=== PATIENT | male | born 1930 | race Caucasian/White ===

== ENCOUNTER → 2017-03-15 | Day surgery (SDC) | payer MEDICARE ==
[~2017-03-15] MED LIST: ADVAIR 250-501 EACH IH; AMIODARONE PO; AMLODIPINE BESY10 MG PO; AMLODIPINE-BEN1 EACH PO; ASPIRIN EC81 M1 PO; ASPIRIN81 M1 PO; ASPIRIN81 M2 PO; ASPIRIN81 MG PO; DICLOFENAC PO; DULERA 200 MCG/13 GM INH; FINASTERIDE5 M1 PO; FLOMAX0.4 M1 PO; FUROSEMIDE40 MG PO; HYDRALAZINE HCL25 MG PO; HYDROCODON-ACE1 EAC1 PO; HYDROCODON-ACE1 EAC9 PO; IMDUR-ER60 M3 PO; LEXAPRO PO; LIPITOR PO; LIPITOR20 MG PO; LOTREL 10-20 MG1 CAP PO; LOTREL 10/20 MG1 CAP PO; MOBIC15 MG PO; NITROGLYCERIN0.4 MG SL; NITROQUICK0.4 MG SL; NORCO 7.5-3251 EACH PO; OXYGEN; PAROXETINE HCL40 M1 PO; PLAVIX PO; POTASSIUM CHLO10 ME1 PO; PRILOSEC PO; PROAMATINE10 MG PO; PROSCAR5 MG PO; TRAZODONE PO; VALIUM2 MG PO; VALTREX PO; VITAMIN D1000 UNIT PO; ZOCOR20 MG PO
--- NOTE | ~2017-03-15 | OR ---
Unit #: [id number] #: [id number] Patient: WINTER HARRIS [id number] [address] [place], [place] [address] [id number] O MR#: [id number] NAME: WINTER HARRIS ROOM: Date of Procedure: 03/15/2017 Admission Date: 03/15/2017 Surgeon: Zaire Harris M.D. : 1930 Attending Physician: Zaire Harris M.D. Primary Care Physician: Willie Neal M.D. OPERATIVE REPORT PREOPERATIVE DIAGNOSES Back pain, radiculopathy, post-laminectomy, spinal stenosis, degenerative disk disease, lumbar disk herniation. POSTOPERATIVE DIAGNOSES Back pain, radiculopathy, post-laminectomy, spinal stenosis, degenerative disk disease, lumbar disk herniation. PROCEDURE PERFORMED Lumbar epidural steroid injection via caudal approach with fluoroscopic guidance for needle localization. INDICATIONS FOR PROCEDURE The patient is an 86-year-old male with back and intermittent lower extremity pains especially right hip and lower extremity. He has multilevel multifactorial nonsurgical pathology. Medications poorly tolerated. Most of his symptoms consistent with spinal stenosis. Epidural injection trial at [facility] that did not help at all, it is ended up creating increased pain in his right leg following a significant paresthesia during the procedure itself. However based on the patient's history, pathology, and symptomatology, I think epidural steroids would likely be helpful. We are going to approach this via caudal entry to avoid problems he had with previous injection. DESCRIPTION OF PROCEDURE The patient was placed in a prone position. Standard monitors were applied. Sterile prep and drape of the sacral area was performed. The skin then at the sacral hiatus was localized with 1% lidocaine. An 18-gauge Expedit.ustead needle was then advanced via the sacral hiatus into the caudal epidural space. After position was confirmed with radiographic contrast and fluoroscopy, a dose of 80 mg of Depo-Medrol and 6 mL of 0.125% bupivacaine were deposited. The patient tolerated the procedure otherwise well and was discharged to the recovery room in stable condition. Dictated by... Zaire Harris M.D. LHP/yumikol TD: 03/15/2017 15:04 JOB #: [id number] Unit #: [id number] #: [id number] Patient: JESSICA HARRISSHA Bills OPERATIVE REPORT Page 1 of 1 X Zaire Harris MD X PROCEDURE OPERATIVE NOTE
== END | disposition home or self-care (01) ==
LOC: CCSC 09:27
DX: M51.16 Intervertebral disc disorders with radiculopathy, lumbar region (principal); M48.06 Spinal stenosis, lumbar region; Z98.890 Other specified postprocedural states; I25.10 Atherosclerotic heart disease of native coronary artery without angina pectoris; K21.9 Gastro-esophageal reflux disease without esophagitis; M19.90 Unspecified osteoarthritis, unspecified site; I10 Essential (primary) hypertension; F41.9 Anxiety disorder, unspecified; J43.9 Emphysema, unspecified; Z85.51 Personal history of malignant neoplasm of bladder; Z86.718 Personal history of other venous thrombosis and embolism; Z86.711 Personal history of pulmonary embolism; Z79.82 Long term (current) use of aspirin; Z79.1 Long term (current) use of non-steroidal anti-inflammatories (NSAID); Z79.891 Long term (current) use of opiate analgesic; Z95.5 Presence of coronary angioplasty implant and graft; Z90.49 Acquired absence of other specified parts of digestive tract; Z96.652 Presence of left artificial knee joint
CPT/HCPCS: J1040; J2250

== ENCOUNTER → 2017-03-22 | Day surgery (SDC) | payer MEDICARE ==
--- NOTE | ~2017-03-22 | OR ---
Unit #: [id number] #: [id number] Patient: WINTER HARRIS [id number] [address] [place], [place] [address] [id number] O MR#: [id number] NAME: WINTER HARRIS ROOM: Date of Procedure: 03/22/2017 Admission Date: 03/22/2017 Surgeon: Zaire Harris M.D. : 1930 Attending Physician: Zaire Harris M.D. Primary Care Physician: Willie Neal M.D. OPERATIVE REPORT PREOPERATIVE DIAGNOSES Back pain, radiculopathy, postlaminectomy, herniated nucleus pulposus, spinal stenosis. POSTOPERATIVE DIAGNOSES Back pain, radiculopathy, postlaminectomy, herniated nucleus pulposus, spinal stenosis. PROCEDURE PERFORMED Lumbar epidural steroid injection with fluoroscopic guidance for needle localization. INDICATIONS FOR PROCEDURE The patient is an 86-year-old male with worsening back and right lower extremity pain. He was treated last year with a trial of caudal epidural steroid injection gave him 4 to 5 days of moderately good improvement. The pain is now its baseline now. He has severe multilevel multifactorial changes at L2 through S1, most significant at L5-S1 and L3-L4. Based on partial response, plan is to repeat an injection at this time via an epidural approach for the entry of the L4-L5 level to hopefully equally address the most significant L3-L4 and L5-S1 pathologic levels. DESCRIPTION OF PROCEDURE The patient was placed in the seated position. Standard monitors were applied. Sterile prep and drape of the lumbar area was performed. The skin then at the L4-L5 level was localized with 1% lidocaine. An 18-gauge Shut Downtead needle was then advanced via loss of resistance technique and fluoroscopic guidance in toward the epidural space. The patient did not complain of pain or paresthesia during needle advancement. After confirming proper positioning with fluoroscopy and radiographic contrast, a dose of 80 mg of Depo-Medrol and 4 mL of preservative-free normal saline were deposited. The patient was driving himself home and was requirement for the saline. The patient tolerated the procedure otherwise well and was discharged to the recovery room in stable condition. Dictated by... Zaire Harris M.D. LHGio/jericho Unit #: [id number] #: [id number] Patient: WINTER HARRIS TD: 03/22/2017 11:21 JOB #: [id number] OPERATIVE REPORT Page 1 of 1 X Zaire Harris MD X PROCEDURE OPERATIVE NOTE
== END | disposition home or self-care (01) ==
LOC: CCSC 09:27
DX: M51.16 Intervertebral disc disorders with radiculopathy, lumbar region (principal); M48.06 Spinal stenosis, lumbar region; I25.10 Atherosclerotic heart disease of native coronary artery without angina pectoris; K21.9 Gastro-esophageal reflux disease without esophagitis; J44.9 Chronic obstructive pulmonary disease, unspecified; M19.90 Unspecified osteoarthritis, unspecified site; I10 Essential (primary) hypertension; F41.9 Anxiety disorder, unspecified; Z86.711 Personal history of pulmonary embolism; Z86.718 Personal history of other venous thrombosis and embolism; Z79.82 Long term (current) use of aspirin; Z79.1 Long term (current) use of non-steroidal anti-inflammatories (NSAID); Z79.899 Other long term (current) drug therapy; Z98.890 Other specified postprocedural states
CPT/HCPCS: J1040; J2250

== ENCOUNTER → 2017-03-29 | Outpatient (CLI) | payer MEDICARE ==
--- NOTE | ~2017-03-29 | MR3 ---
[facility] A Service of [facility] & [facility] RADIOLOGY TEXT RESULTS PATIENT: WINTER HARRIS LOCATION: [facility] : 30 UNIT #: [id number] AGE: [address]: Bradford Wang MD SEX: M ORDER DR: [id number] [facility] [address] [facility] [place] [facility]. [place], [place] [address] [id number] O MR#: [id number] Acc #: [id number] NAME: WINTER HARRIS. : 1930 SEX: M STUDY DATE/TIME: 03/29/2017 16:23 UNIT: [facility] ROOM: STUDY DESCRIPTION: MR Abdomen Wo Contrast Attending Physician: Bradford Wang M.D. Referring Physician: Bradford Wang M.D. Ordering Physician: Bradford Wang M.D. Primary Care Physician: Willie Neal M.D. MRI CENTER REPORT This report is preliminary unless electronic signature is present. EXAM MRI of the abdomen, no contrast; 03/29/2017. INDICATIONS 86-year-old male presenting for a 6-month follow up of a renal mass. Bladder cancer. TECHNIQUE Multiplanar, multisequence MRI of the abdomen was performed without the administration of intravenous contrast secondary to a diminished GFR of 33. COMPARISON Comparison MRI 08/17/2016. FINDINGS MRI ABDOMEN: No pleural effusion. Aorta demonstrates no aneurysm. No organomegaly. Gallbladder not identified and presumably surgically absent. No evidence of pancreas divisum. Extrahepatic common bile duct measures up to about 8 mm, in the normal range for patient age. The patient has a known upper pole mass in the right kidney. It is solid in appearance and measures about 2.3 cm craniocaudal x 3.0 x 3.4 cm AP and transverse. This compares with 2.4 x 3.0 x 2.7 cm on the prior study. It is stable to slightly larger. It remains concerning for renal cell carcinoma based on signal characteristics, even without the benefit of IV contrast on this examination. There are multiple benign-appearing renal cysts bilaterally that are not significantly changed. The largest of these is in the upper pole left kidney measuring 4.6 cm. No hydronephrosis of either kidney. There is atrophy and cortical scarring of the kidneys bilaterally. Perinephric stranding bilaterally similar to the prior study. There is no new adenopathy. The spleen and adrenal glands are unremarkable. The pancreas is unremarkable to the extent visualized. Included liver unremarkable. There is diverticulosis. There [facility] A Service of [facility] RADIOLOGY TEXT RESULTS PATIENT: WINTER HARRIS LOCATION: [facility] : 30 UNIT #: [id number] AGE: [address]: Bradford Wang MD SEX: M ORDER DR: is degenerative change in the lumbar spine related to dextroscoliosis. Marrow signal otherwise unremarkable. IMPRESSION 1. The indeterminate mass in the upper pole right kidney is stable to slightly larger now measuring up to a maximum diameter of 3.4 cm previously measuring up to 3.0 cm. Imaging features remain concerning for renal cell carcinoma. 2. No new adenopathy. 3. Cortical scarring and atrophy of the kidneys bilaterally and multiple benign-appearing renal cysts. 4. Surgical absence of the gallbladder. 5. Diverticulosis. 6. Dextroscoliosis and degenerative changes in the lumbar spine. 7. Exam degraded by noncontrast technique. Contrast not administered secondary to a diminished GFR as described. Dictated by... Kole Richmond M.D. THIS IS AN ELECTRONICALLY VERIFIED REPORT Kole Richmond M.D. at 03/30/2017 6:42 PM Wai TD: 03/30/2017 18:17 JOB #: [id number] MRI CENTER REPORT Page 1 of 1 COPY
[2017-03-29 16:24] LABS: CREATININE SERUM 1.8 mg/dL (0.6-1.4); GLOM FILT RATE Estimated 33.3 mL/min (>60)
== END | disposition home or self-care (01) ==
LOC: CMRI 15:21
PROVIDERS: Urology
DX: N28.89 Other specified disorders of kidney and ureter (principal); K57.90 Diverticulosis of intestine, part unspecified, without perforation or abscess without bleeding; M47.896 Other spondylosis, lumbar region; M41.9 Scoliosis, unspecified; N26.1 Atrophy of kidney (terminal); Q61.02 Congenital multiple renal cysts; Z90.49 Acquired absence of other specified parts of digestive tract
CPT/HCPCS: 36415; 74181; 82565

== ENCOUNTER 2017-04-18 13:29 | Inpatient (IN) | payer MEDICARE ==
[~2017-04-18] VITALS: Ht 182.9 cm; Wt 88.5 kg
--- NOTE | ~2017-04-18 | DS ---
Unit #: [id number] #: [id number] Patient: WINTER HARRIS [id number] [address] [address] [id number] I MR#: [id number] NAME: WINTER HARRIS ROOM: 562 Age: 86 Sex: M Admission Date: 04/18/2017 : 1930 Discharge Date: 04/20/2017 Attending Physician: Lety Jay M.D. Referring Physician: Willie Neal M.D. Primary Care Physician: Willie Neal M.D. DISCHARGE SUMMARY ADDENDUM Please note following dictation yesterday evening, patient developed a decrease in blood pressure even sitting. However, manual orthostatics were done, and his standing blood pressure was still in the low 90s, and he was asymptomatic. Given the drop in blood pressure, I discontinued Imdur, and the patient will continue to follow up as noted. Dictated by... Lety Jay M.D. ALENA/keegan TD: 04/23/2017 19:38 JOB #: [id number] DISCHARGE SUMMARY Page 1 of 1 X Lety Jay MD X DISCHARGE SUMMARY
--- NOTE | ~2017-04-18 | HM ---
Unit #: [id number] #: [id number] Patient: WINTER HARRIS [id number] [facility] [address] [place], [place] [address] [id number] I MR#: [id number] NAME: WINTER HARRIS. : 1930 SEX: M STUDY DATE/TIME: 04/19/2017 UNIT: [id number] ROOM: 562 STUDY DESCRIPTION: Attending Physician: Lety Jay M.D. Referring Physician: Willie Neal M.D. Primary Care Physician: Willie Neal M.D. CARDIOLOGY REPORT EXAM 24-hour Holter monitor. DATE APPLIED 04/19/2017 DATE SCANNED 04/25/2017 READ BY [facility] Cardiology ORDERED BY Dr. Gaspar REASON FOR STUDY Atrial fibrillation. FINDINGS Underlying rhythm is sinus tachycardia with an average heart rate of 109 beats per minute, minimum heart rate of 69 beats per minute, and a maximum heart rate of 164 beats per minute. The minimum heart rate of 69 beats per minute is noted at 9:47 p.m. The maximum heart rate of 164 beats per minute is noted at 6:35 p.m. Patient had a 1.17 second pause noted at 8:33 p.m. Patient had 1612 single multifocal premature ventricular complex, 25 ventricular couplet noted. Patient had a three-beat run of ventricular tachycardia at a heart rate of 110 beats per minute noted at 3:40 a.m. Patient had 1004 single premature atrial complex and 57 single atrial couplets noted. Patient had several runs of paroxysmal supraventricular tachycardia and atrial fibrillation noted throughout the 24-hour recording. Patient had several 4 to 24 beat run of atrial arrhythmias with heart rate ranging from 109 to 146 beats per minute. Patient did not record any symptoms. CONCLUSION 1. Underlying rhythm is sinus tachycardia with an average heart rate of 109 beats per minute, minimum heart rate of 69 beats per minute, and a maximum heart rate of 169 beats per minute. 2. No significant pauses noted. 3. Frequent single multifocal premature ventricular complex noted. 4. Frequent single premature atrial complex noted. 5. Patient had several 4 to 24 beat run of atrial arrhythmias with heart rate ranging from 100 to 150 beats per minute. Unit #: [id number] #: [id number] Patient: WINTER HARRIS 6. Patient did not record any symptoms. Dictated by... Kentrell Toro TD: 04/25/2017 17:14 JOB #: [id number] CARDIOLOGY REPORT Page 1 of 1 X Ebonie Rai MD <ELECTRONICALLY SIGNED> 05/10/17 1524 HOLTER MONITOR REPORT
--- NOTE | ~2017-04-18 | EKG ---
PATIENT: WINTER HARRIS UNIT #: [id number] Ventricular Rate: 102 BPM Atrial Rate: 102 BPM P-R Interval: 196 ms QRS Duration: 82 ms Q-T Interval: 342 ms QTC Calculation(Bezet): 445 ms P [place]: 30 degrees Calculated R [place]: -30 degrees Calculated T [place]: 41 degrees Diagnosis Line: Sinus tachycardia Diagnosis Line: Left axis deviation Diagnosis Line: Abnormal ECG Diagnosis Line: When compared with ECG of 18-APR-2017 16:12, Diagnosis Line: (unconfirmed) Diagnosis Line: Sinus rhythm has replaced Atrial fibrillation Diagnosis Line: Diagnosis Line: Confirmed by SALBADOR CASTLE MD ([id number]) on Diagnosis Line: 04/18/2017 11:08:23 PM INTERPRETING : KARLO
--- NOTE | ~2017-04-18 | EKG ---
PATIENT: WINTER HARRIS UNIT #: [id number] Ventricular Rate: 115 BPM Atrial Rate: 120 BPM QRS Duration: 70 ms Q-T Interval: 282 ms QTC Calculation(Bezet): 390 ms Calculated R [place]: -27 degrees Calculated T [place]: -18 degrees Diagnosis Line: Atrial fibrillation with rapid ventricular Diagnosis Line: response with premature ventricular or aberrantly Diagnosis Line: conducted complexes Diagnosis Line: Abnormal ECG Diagnosis Line: When compared with ECG of 26-JUN-2014 11:21, Diagnosis Line: Atrial fibrillation has replaced Sinus rhythm Diagnosis Line: Nonspecific T wave abnormality now evident in Diagnosis Line: Inferior leads Diagnosis Line: Confirmed by SALBADOR CASTLE MD ([id number]) on Diagnosis Line: 04/18/2017 11:05:03 PM INTERPRETING MD: KARLO
--- NOTE | ~2017-04-18 | EKG ---
PATIENT: WINTER HARRIS UNIT #: [id number] Ventricular Rate: 111 BPM Atrial Rate: 111 BPM P-R Interval: 198 ms QRS Duration: 80 ms Q-T Interval: 342 ms QTC Calculation(Bezet): 465 ms P [place]: 37 degrees Calculated R [place]: 0 degrees Calculated T [place]: 42 degrees Diagnosis Line: Sinus tachycardia with Fusion complexes Diagnosis Line: Nonspecific T wave abnormality Diagnosis Line: Abnormal ECG Diagnosis Line: When compared with ECG of 18-APR-2017 19:47, Diagnosis Line: Fusion complexes are now Present Diagnosis Line: Nonspecific T wave abnormality, worse in Lateral Diagnosis Line: leads Diagnosis Line: Confirmed by SALBADOR CASTLE MD ([id number]) on Diagnosis Line: 04/20/2017 4:47:08 PM INTERPRETING MD: KARLO
--- NOTE | ~2017-04-18 | CO ---
Unit #: [id number] #: [id number] Patient: WINTER HARRIS [id number] [address] [place], [place] [address] [id number] I MR#: [id number] NAME: WINTER HARRIS. ROOM: 562 Age: 86 Sex: M Admission Date: 04/18/2017 : 1930 Attending Physician: Lety Jay M.D. Primary Care Physician: Willie Neal M.D. CONSULTATION REPORT REASON FOR CONSULTATION Evaluation of stage 4 chronic kidney disease. HISTORY OF PRESENT ILLNESS This is an 86-year-old white gentleman with known history of chronic kidney disease presumably secondary to hypertensive nephrosclerosis. He was admitted initially to the hospital 1 week ago for accelerated hypertension. The patient was aggressively treated with antihypertensives. His medications included the addition of Lasix plus hydralazine. The patient states that since his discharge he has felt weak, tired with frequent falls. He called EMS yesterday on the day of admission with complaints of dizziness and a fall. EMS was called and brought the patient to the hospital for further evaluation. In the emergency room, he was found to be hypotensive. The patient has been given 1 L of IV fluids and his diuretics have been discontinued. With that his symptoms seem to have improved overnight. He denies any pain over the kidneys. No dysuria. No hematuria. He does carry a diagnosis of nephrotic syndrome, the etiology is not apparent at the time of this dictation. He has been complaint with his medications and does not use any nephrotoxic agents. PAST MEDICAL HISTORY Significant for the following: Chronic kidney disease, stage 4 with a baseline creatinine of 1.8; hypertension; COPD; papillary bladder CA, status post fulguration and mitomycin C therapy; coronary artery disease, status post PCI; benign prostatic hypertrophy; renal mass versus cyst; degenerative joint disease; chronic back pain; left knee replacement; cholecystectomy. HOME MEDICATIONS Include Lasix 40 mg p.o. daily, hydralazine 25 mg p.o. t.i.d., potassium chloride 10 mEq daily, Norvasc 10 mg daily, aspirin 81 mg daily, Lipitor 20 mg p.o. daily, Proscar 5 mg p.o. daily, [place] 7.5/325 mg p.o. t.i.d. p.r.n. pain, nitroglycerin sublingual p.r.n. chest pain, Paxil 40 mg p.o. daily, Flomax 0.4 mg p.o. b.i.d., trazodone 25 mg p.o. q.h.s., vitamin D 1000 units p.o. daily. ALLERGIES The patient has no known medical allergies. FAMILY HISTORY Negative for renal disease. SOCIAL HISTORY Unit #: [id number] #: [id number] Patient: WINTER HARRIS The patient lives alone. Denies any tobacco, alcohol, or drug use at the present time. He is currently retired. REVIEW OF SYSTEMS A 14-point review of systems was performed, the pertinent positives and negatives are as stated above. PHYSICAL EXAMINATION GENERAL: He is awake, alert, pleasant, obese white gentleman, in no acute distress. VITAL SIGNS: Today, show a temperature of 97.6, pulse 105, respirations 17, blood pressure is 140/73. HEENT: Shows the pupils to be equal and reactive to light with normal extraocular motility. The oropharynx is clear. There are no mucosal abnormalities. NECK: Supple. 2+ carotid pulses. No carotid bruits or JVD. HEART: Regular rhythm without murmurs, gallops, or rubs. LUNGS: Clear with equal breath sounds. There are no rales, rhonchi, or wheezes. ABDOMEN: Obese, soft, and nontender with positive bowel sounds. There is no hepatosplenomegaly. No CVA tenderness. No presacral edema. The kidneys are not palpable at this time. EXTREMITIES: Showed no clubbing, no cyanosis, with 2+ pretibial edema, 2+ radial pulses, and 2+ pedal pulses. DIAGNOSTIC STUDIES LABORATORY RESULTS: Showed the following; glucose 118, BUN 30, creatinine 2.0, sodium 143, potassium 4.0, chloride of 111, CO2 of 24, calcium is 8.1, albumin is 3.1, total protein is 0.8, direct bilirubin is 0.1, AST is 28, alkaline phosphatase is 150, lipase is 29, CK is 34. BNP is 93. B12 [place] [address]. Lactic acid is 1.3. Urinalysis shows specific gravity of 1.016, pH of 5, negative leukocytes, 1+ protein, positive glucose, negative ketones, there are 50 to 100 red blood cells per high power field, and 0 to 2 white blood cells. IMPRESSION 1. Chronic kidney disease, stage 4 with acute worsening most likely secondary to overdiuresis. 2. Hypertension, overtly controlled. 3. Atrial fibrillation with rapid ventricular response. 4. Nephrotic syndrome by history. 5. Chronic obstructive pulmonary disease. 6. Coronary artery disease, status post percutaneous coronary intervention. 7. Bladder cancer, status post fulguration. RECOMMENDATIONS Agree with adjustment of diuretics and also to agree with discontinuation of diuretics. We would hold IV fluids for now. We will monitor fluid and electrolytes status. We will quantitate protein in urine. We will follow along with you. Thank you very much for allowing us to participate in this patient's care. Dictated by... Wilner Siknner Jr., M.D. Unit #: [id number] #: [id number] Patient: JESSICA HARRISSHA BUSTAMANTE/modl TD: 04/20/2017 12:34 JOB #: [id number] CONSULTATION REPORT Page 1 of 1 X Wilner Skinner Jr, MD X CONSULTATION REPORT
--- NOTE | ~2017-04-18 | CO ---
Unit #: [id number] #: [id number] Patient: WINTER HARRIS [id number] [address] [place], [place] [address] [id number] MR#: [id number] NAME: WINTER HARRIS. ROOM: 562 Age: 86 Sex: M Admission Date: 04/18/2017 : 1930 Attending Physician: Lety Jay M.D. Primary Care Physician: Willie Neal M.D. Consultation Date: 04/19/2017 CONSULTATION REPORT REASON FOR CONSULTATION Hypotension and paroxysmal atrial fibrillation. HISTORY OF PRESENT ILLNESS This is an 86-year-old white male, has a history of hypertension, hyperlipidemia, COPD, previous HI that had stent placed to the mid RCA in 2004, BPH and reported bladder cancer that is remission, chronic kidney disease. He has been having unsteady gait, multiple falls, lightheadedness. Patient recently lost his about nine months ago and his son is dealing with brain cancer. He is under a lot of emotional stress. The daughter at the bedside lives in [place]. She says that her father has not been eating well and he has been becoming weaker over the past few weeks. According to the patient, when he gets up and attempts to walk, he just gets real weak in his legs. He says he sort of buckle. He has had a couple of falls but no acute injury. He was at [facility] last week, got out Sunday, had a workup. He was hypertensive and that was also after he had a fall. He also complains of having some shortness of breath on exertion. He denies any pain in his chest, bilateral jaws, shoulders, arm or elbow. He denies any syncope with these episodes. According to the daughter and the patient, they believe he has had extensive evaluation including an echo. May be possibly a stress test and was there 2 to 3 days. At the time of discharge, they did change around his medication, put him on some oral Lasix along with hydralazine and supplemental potassium. The patient was supposed to follow with Dr. Neal in the office. He, overall, states he was not feeling any improvement in his symptoms. When he went to see Dr. Neal, his blood pressure was found to be 80/60. Dr. Neal sent him to the emergency room for further evaluation. In the ER, his blood pressure was 150/86, his heart rate was 112, respiration 16. He was afebrile, 95% O2 saturation on room air. He had a brief episode of atrial fibrillation with rapid ventricular response. That is documented on the EKG. As far as the family and the patient knows, he has no history of that, of A-fib. The patient received a bolus of saline. He was given a dose of oral Cardizem. Patient right now his telemetry is showing sinus rhythm with PACs. Cardiology consult to assist with evaluation and management of his hypotension and his paroxysmal atrial fib. PAST MEDICAL HISTORY 1. Hypertension. 2. Hyperlipidemia. 3. COPD, reformed smoker. 4. Coronary artery disease. In 2004 had an HI that required a PCI and stent to the mid RCA. He had a normal LV at that time. 5. History of bladder cancer back in 2012, in remission. Unit #: [id number] #: [id number] Patient: WINTER HARRIS 6. Vertigo. 7. Arthritis. 8. BPH. 9. Chronic kidney disease and has reported a possible cyst on the right kidney. 10. Recent admission at [facility] 04/12 to 04/14/2017. PAST SURGICAL HISTORY 1. Back surgery. 2. Left knee replacement. 3. Cholecystectomy. HOME MEDICATIONS 1. Lasix 40 mg p.o. daily, a recent medication. 2. Hydralazine, 25 mg p.o. three times daily, recent medication. 3. Potassium 10 mEq p.o. daily, recent medication. 4. Norvasc 10 mg p.o. daily. 5. Aspirin 81 mg p.o. daily. 6. Lipitor 20 mg p.o. daily. 7. Proscar 5 mg p.o. daily. 8. [place] 7.5 to 325, one tablet three times daily p.r.n. 9. Nitrostat 0.4 mg, one tablet sublingual p.r.n. x3. 10. Paxil 40 mg p.o. daily. 11. Flomax 0.4 mg, two tablets p.o. daily. 12. Trazodone 25 mg, one tablet p.o. q. h.s. 13. Vitamin D 1000 units subcu daily. ALLERGIES No known drug allergies. SOCIAL HISTORY The patient lives alone but his daughter is currently out of town staying within him for a few days. He recently lost his nine months ago and he has a son that is undergoing treatment and surgery for a brain tumor. He quit smoking about 30 years ago, was a half to a pack a day smoker for about 30 years. No alcohol or illicit drug abuse. FAMILY HISTORY His father at the age of 57 of pneumonia. Mother had a permanent pacemaker and at the age of 86. He had a sister who had hypertension, diabetes mellitus. He had another sister that had bypass surgery. REVIEW OF SYSTEMS See details in HPI. PHYSICAL EXAMINATION GENERAL: On exam, Mr. Harris is an 86-year-old white male in no acute respiratory distress. He is awake, alert and oriented. VITAL SIGNS: Blood pressure currently is 127/69, heart rate 96, respirations 18, temperature 97.9, O2 sats 94% on room air. It is noted that he has orthostatic vital signs earlier. Blood pressure lying 149/80 with heart rate 94, blood pressure sitting was 118/87 with a heart rate of 102 and blood pressure standing was 153/120 with a heart rate of 90. NECK: Trachea midline. No thyromegaly or lymphadenopathy. Faint carotid bruits. No JVD. HEART: S1, S2. Regular rate and rhythm. No clicks, murmurs or rubs. LUNGS: Diminished, otherwise clear. Unit #: [id number] #: [id number] Patient: WINTER HARRIS ABDOMEN: Obese, soft, nontender. EXTREMITIES: Pedal pulses are palpable. 2+ pedal edema. LABORATORY AND DIAGNOSTIC DATA Glucose is 118, BUN 30, creatinine 2.0, eGFR is 29.4, sodium 143, potassium 4.0, chloride 111, CO2 24, calcium is 8.1, total protein 6.2, albumin 3.1, bili total 0.8, AST 21, ALT 28, and alk. phos. is 150. Lactic acid 1.3. TSH is 1.81, T4 is 1.06. INR is 1.1, WBC is 6.1, hemoglobin 11.7, hematocrit 35.6. On admission hemoglobin 13.6 with hematocrit 41.3, platelets of 273. Initial cardiac enzymes - CK MB is 2.1, troponin less than 0.05. CK MB is 2.5, troponin less than 0.05. Repeat cardiac enzymes - CK total of 34, troponin 0.04. Urinalysis - 1+ protein, 100 glucose, 1.0 urobilinogen. Blood cultures preliminary report - negative so far. Urine cultures are pending. Chest x-ray shows a benign calcified granuloma in the periphery of the right upper lobe, degenerative changes in both shoulders, otherwise nothing acute. Bilateral lower extremity venous Doppler studies shows a negative DVT. EKG on admission shows atrial fibrillation with rapid ventricular response. Ventricular rate is 115 beats per minute, inferior infarct age undetermined. Poor R wave progression. Rare premature ventricular complex. Telemetry shows sinus rhythm with some PACs. IMPRESSION 1. Weakness, falls, dizziness. 2. Hypotension with a history of hypertension. 3. Orthostatic hypotension. 4. Paroxysmal atrial fibrillation, now in sinus with PACs. 5. History of coronary artery disease, previous HI with PCI/stent. 6. Normal LV systolic function on last cardiac cath in 2004. 7. Chronic kidney disease, acute on chronic renal insufficiency. 8. Hyperlipidemia. 9. COPD. 10. Reformed smoker. 11. Frequent falls. PLAN 1. Cardiology consulted to assist with evaluation and management. 2. Will obtain records of the recent stress test and echo done at [facility] last week. Will obtain official cardiac cath report form [facility]. So far, his cardiac enzymes are negative. EKG does not show anything acute. 3. Will start amiodarone to maintain normal sinus rhythm. 4. Will stop the Cardizem to avoid any hypotension and will decrease his hydralazine to 25 mg twice daily. 5. Dr. Garrison, after evaluation and examination, he feels the patient is not a candidate for anticoagulation in view of multiple falls so will Unit #: [id number] #: [id number] Patient: WINTER HARRIS try to make every effort to maintain normal sinus rhythm and, as mentioned, will keep him on amiodarone. Will load with the amiodarone. 6. Dr. Garrison had a long discussion with the patient's daughter and they are agreeable. 7. Will start midodrine to avoid any postural hypotension and treat and maybe perhaps look into changing the trazodone which can also cause postural hypotension in an elderly patient. 8. On exam, there are no signs or symptoms of angina, congestive heart failure. 9. Further recommendations pending per Dr. Garrison. Thank you very much for allowing us to assist in the care. Dictated by... Jaylene Yeboah A.P.R.N. for Kentrell Knapp/joby TD: 04/20/2017 11:37 JOB #: [id number] CONSULTATION REPORT Page 1 of 1 X Jaylene Yebaoh APRN X CONSULTATION REPORT
--- NOTE | ~2017-04-18 | HP ---
Unit #: [id number] #: [id number] Patient: WINTER HARRIS [id number] [address] [place], [place] [address] [id number] I MR#: [id number] NAME: WINTER HARRIS. ROOM: 562 Age: 86 Sex: M Admission Date: 04/18/2017 : 1930 Attending Physician: Joi Gaspar M.D. Referring Physician: Willie Neal M.D. Primary Care Physician: Willie Neal M.D. HISTORY AND PHYSICAL CHIEF COMPLAINT Hypotension, weakness, atrial fibrillation with rapid ventricular response. HISTORY This pleasant 86-year-old male with chronic kidney disease, CAD, hypertension, is admitted for hypotension, weakness and A-fib with RVR. Patient states that over the past several weeks he has been weaker, falling, losing his balance, sometimes lightheaded, and more recently has been experiencing dyspnea on exertion. Denies chest pain with the above. He was admitted to [facility] late last week with these symptoms, was found to have accelerated hypertension which was treated. Apparently he underwent extensive evaluation including echo, stress test, and I will obtain these results. At the time of discharge, 40 mg of Lasix was added to the patient's medications along with 25 mg of hydralazine t.i.d. and potassium 10 mEq daily. He states that he is no better, and saw his primary care physician today. In the office, the patient's blood pressure was found to be 80/60. He was sent to this emergency department for further evaluation. In our ER, his blood pressures have been normotensive, but he did have an episode of A-fib with RVR, rate about 120. No previous history of atrial fibrillation. Labs are notable for acute on chronic kidney disease. In the ER, he is receiving a bolus of saline. PAST MEDICAL HISTORY 1. COPD. 2. Chronic kidney disease. 3. Chronic low back pain, status post epidural steroid injections and back surgery. 4. BPH. 5. Papillary bladder cancer requiring cystoscopy and fulguration of the bladder tumor along with instillation of mitomycin-C. 6. CAD, status post PCI and stent about 8-10 years ago at [facility]. Patient states that a recent stress test at [facility] which was reportedly negative. 7. BPH. 8. Essential hypertension. 9. Possible cyst versus mass on the right kidney, currently being watched by patient's urologist. 10. DJD and chronic pain. 11. Back surgery. 12. Left knee replacement. 13. Cholecystectomy. Unit #: [id number] #: [id number] Patient: WINTER HARRIS ALLERGIES No known drug allergies. HOME MEDICATIONS 1. Lasix recently added, 40 mg daily. 2. Hydralazine recently added, 25 mg t.i.d. 3. Potassium recently added, 10 mEq daily. 4. Norvasc 10 mg daily. 5. Aspirin 81 mg daily. 6. Lipitor 20 mg daily. 7. Proscar 5 mg daily. 8. [place] 7.5/325 t.i.d. p.r.n. 9. Nitroglycerin p.r.n. 10. Paxil 40 mg daily. 11. Flomax 0.4 mg, two tablets daily. 12. Trazodone 25 mg q. h.s. 13. Vitamin D 1000 units daily. FAMILY HISTORY Noncontributory given patient's age. SOCIAL HISTORY The patient lives alone, but his daughter is staying with him currently. The patient is making some difficult decisions in regards to possible assisted living versus living with family members. He does not drink alcohol. He stopped smoking about 30 years ago. REVIEW OF SYSTEMS Notable for weakness, lightheadedness, imbalance, falls, dyspnea on exertion, COPD, chronic kidney disease, chronic back pain, DJD, bladder cancer, possible mass versus cyst in the right kidney, CAD, BPH, hypertension, above mentioned surgeries. All other systems were reviewed and otherwise negative. PHYSICAL EXAMINATION GENERAL APPEARANCE: Pleasant 86-year-old male who currently is in no acute distress. VITAL SIGNS: Temperature 97.7, pulse was 112 initially, currently is 100, respirations 16, blood pressure 150/86. O2 saturation is 95% on room air. HEENT: Eyes PERRLA. Extraocular muscles are intact. Pharynx is benign. NECK: Supple without adenopathy or thyromegaly. CHEST: Clear. CARDIAC: Normal S1 and S2 without murmur. ABDOMEN: Bowel sounds are present. No hepatosplenomegaly, tenderness or masses. EXTREMITIES: Notable for mild edema. Diminished pedal pulses are present. NEUROLOGIC EXAM: The patient is awake, alert, oriented. His cranial nerves are intact except that he is hard of hearing. He has +5 out of 5 strength throughout. He is able to stand with assistance. DIAGNOSTIC STUDIES LABORATORY: Admission labs - hematocrit is 41.3, normal white count, platelet count and coags. SMA-12 - glucose 134, BUN 31, creatinine 2.2, up from a creatinine of 1.8 earlier this month. Albumin is 3.1. Alk. phos. 150, lactic acid is normal. Cardiac markers are negative. Unit #: [id number] #: [id number] Patient: WINTER HARRIS IMAGING: Chest x-ray - COPD. CARDIOVASCULAR: EKG - initial EKG showed A-fib with RVR, rate about 115-120 with one PVC noted. Patient spontaneously converted to a normal sinus rhythm with current EKG showing sinus tachycardia, rate 102, left axis deviation. ASSESSMENT 1. Weakness, falls, dyspnea on exertion for several weeks. Patient was recently admitted to [facility], underwent testing and was treated for accelerated hypertension. 2. Hypotension today, now resolved. 3. Episode of new atrial fibrillation with RVR which spontaneously converted in the ER. 4. Essential hypertension. 5. Dyspnea on exertion. 6. COPD. 7. BPH. 8. Bladder cancer, treated in the past. 9. Chronic kidney disease, a little worse, therefore it would be acute on chronic kidney disease. 10. CAD, status post PCI and stent 10 years ago. Patient reports a recent stress test at [facility] which was negative. 11. DJD and chronic pain. 12. Cyst versus mass in the right kidney, being monitored by patient's urologist. PLANS 1. Change [facility] to [facility] for now. 2. Decrease Lasix and discontinue potassium. 3. Gentle IV fluids tonight. 4. Obtain TSH and B12 level. 5. Obtain records from [facility] and recent testing. 6. Check orthostatics, Holter monitor and will check O2 sats while ambulating to see if patient requires home oxygen. 7. Physical therapy and customer care manager to assess patient. 8. Cardiology to consult. 9. DVT prophylaxis and check venous Doppler of the legs in the morning. Dictated by Joi Gaspar M.D. SIMON/joby :14 TD: 04/19/2017 05:09 JOB #: [id number] Unit #: [id number] #: [id number] Patient: WINTER HARRIS HISTORY AND PHYSICAL Page 1 of 1 X Joi Gaspar MD X HISTORY AND PHYSICAL
--- NOTE | ~2017-04-18 | DS ---
Unit #: [id number] #: [id number] Patient: WINTER HARRIS J [id number] [address] [place], [place] [address] [id number] I MR#: [id number] NAME: WINTER HARRIS ROOM: 562 Age: 86 Sex: M Admission Date: 04/18/2017 : 1930 Discharge Date: 04/20/2017 Attending Physician: Lety Jay M.D. Referring Physician: Willie Neal M.D. Primary Care Physician: Willie eNal M.D. DISCHARGE SUMMARY PRINCIPAL DIAGNOSES 1. Orthostatic hypotension, medication induced. 2. Hypertension. 3. Paroxysmal atrial fibrillation, now converted to normal sinus rhythm. No anticoagulation secondary to history of falls. 4. Acute kidney injury on chronic kidney disease, stage 4, with baseline creatinine of approximately 1.8. 5. Newly diagnosed chronic respiratory failure, hypoxic, maintained on 2 liters of oxygen per nasal cannula continuously. 6. Chronic obstructive pulmonary disease. 7. Benign prostatic hypertrophy. 8. Coronary artery disease. 9. Degenerative joint disease with associated chronic pain. 10. Normocytic anemia. 11. Mild protein malnutrition. 12. Mild deconditioning. 13. History of bladder cancer. CONSULTANTS 1. Dr. Garrison, cardiology. 2. Dr. Skinner, nephrology. PROCEDURES IMAGING: Chest x-ray on April 18, 2017 with hyperinflation of the lungs, calcified granuloma in the periphery of the right upper lobe that is stable. Bilateral lower extremity venous Doppler, which was negative for DVT. CLINICAL HISTORY AND HOSPITAL COURSE Mr. Harris is a really nice 86-year-old male who presents to the emergency department after developing shortness of breath, weakness and falls at home. He was found to be hypotensive in Dr. Neal' office and was sent to the emergency department. Please refer to H and P for further details. In the ER, he was also found to be in A fib with RVR, which is a reportedly new diagnosis. His creatinine was also found to be elevated at 2.2, up from a baseline of 1.8. Patient was subsequently admitted. Dr. Garrison was consulted given patient's new A fib and his hypotension. Several of his antihypertensives were discontinued. Orthostatics were done, and he was found to be significantly orthostatic. Thus, he was placed on midodrine. Today he still has noticeable hypotension but is Unit #: [id number] #: [id number] Patient: WINTER HARRIS asymptomatic. We will discharge home on medications as outlined below. In regard to the patient's A fib, he has been placed on amiodarone, has converted back to normal sinus rhythm. He will be maintained on amiodarone as noted below. Again, no anticoagulation due to history of falls. In regard to patient's acute kidney injury, postvoid residual done, and this was normal. He was placed on IV fluids. I suspect his acute component was secondary to hypotension. Nephrology was consulted, and patient has returned to his baseline. Patient can follow up with Dr. Skinner if he so wishes as an outpatient. However, he does not wasn't any sort of renal intervention long-term. Patient today is clinically doing much better. His dyspnea, I suspect, is secondary to progressive COPD despite his cessation of tobacco use many years ago. His ambulating O2 sats dropped to the mid 80s. I have placed him on 2 liters of oxygen per nasal cannula continuously, in addition to Dulera. I am hoping with, perhaps, some Dulera treatment, oxygen may improve over the intermediate frame tender. This will need to be reevaluated by Dr. Neal in the office. I did have a very long discussion with the patient and his daughter regarding his long-term living situation. He has had more difficulty living at home after the of his about 9 months ago, and he also has the recent illness of his son with severe glioblastoma. However, he does not meet criteria for rehab. He will be discharged back home with home health, but the daughter is currently evaluating assisted living in the future. DISCHARGE CONDITION Stable. DISCHARGE STATUS Discharge to home. DISCHARGE MEDICATIONS 1. Flomax 0.4 mg b.i.d. 2. Amiodarone 200 mg p.o. b.i.d. through April 26, 2017, then to decrease to 200 mg p.o. daily. 3. Paxil 40 mg daily. 4. Trazodone 25 mg at bedtime. 5. Dulera 200/5 mcg 2 puffs b.i.d. 6. Lasix 20 mg daily. 7. Lipitor 20 mg at bedtime. 8. Midodrine 10 mg p.o. t.i.d. with meals. 9. Proscar 5 mg daily. 10. Aspirin 81 mg daily. 11. Lortab 7.5/325 mg 1 tablet q.8 hours p.r.n. for pain. 12. Nitroglycerin 0.4 mg sublingual q.5 minutes p.r.n. for . 13. Vitamin D 1,000 units p.o. daily. 14. Imdur 60 mg p.o. daily. DISCHARGE INSTRUCTIONS Patient was instructed to follow a heart healthy diet. He can increase his activity as tolerated. We have discussed need for oxygen compliance. FOLLOW-UP 1. Patient has a followup appointment with Dr. Garrison and/or Dr. Rai Unit #: [id number] #: [id number] Patient: WINTER HARRIS on June 21 at 1:15 p.m. 2. Should follow up with Dr. Neal in 2 weeks. NOTE: Time spent on discharge - 40 minutes. Dictated by... Lety Jay M.D. ALENA/keegan TD: 04/23/2017 15:32 JOB #: [id number] DISCHARGE SUMMARY Page 1 of 1 X Lety Jay MD DISCHARGE SUMMARY
--- NOTE | ~2017-04-18 | CR71 ---
[facility] A Service of [facility] RADIOLOGY TEXT RESULTS PATIENT: WINTER HARRIS LOCATION: C5 5601 : 30 UNIT #: [id number] AGE: [address]: Lety Jay MD SEX: M ORDER DR: [id number] [facility] [address]. [place], [place] [address] [id number] MR#: [id number] Acc #: [id number] NAME: WINTER HARRIS. : 1930 SEX: M STUDY DATE/TIME: 04/18/2017 16:31 UNIT: [facility] ROOM: STUDY DESCRIPTION: CR Chest Single View Attending Physician: Osmani Rojas M.D. Referring Physician: Willie Neal M.D. Ordering Physician: Osmani Mcclure75 Crystal Rojas Primary Care Physician: Willie Neal M.D. MEDICAL IMAGING REPORT This report is preliminary unless electronic signature is present EXAM AP portable chest DATE 04/18/2017 HISTORY Low blood pressure, shortness of breath and cough for 4 days. History of bladder cancer. COPD. COMPARISON PA and lateral chest radiograph 03/30/2017 FINDINGS Upper lobes appear hyperinflated. Lungs appear free of acute airspace disease. Benign calcified granuloma in the periphery of the right upper lobe, unchanged. Degenerative changes within both shoulders. No acute osseous abnormality. IMPRESSION 1. Mild upper lobe hyperinflation consistent with history of emphysema. No acute chest findings. 2. Benign calcified granulomatous changes. Dictated by... Kacey Smith M.D. THIS IS AN ELECTRONICALLY VERIFIED REPORT Kacey Smith M.D. at 04/19/2017 12:27 PM LLEugenia/farhanar TD: 04/18/2017 19:58 JOB #: [id number] [facility] A Service [facility][1] RADIOLOGY TEXT RESULTS PATIENT: WINTER HARRIS LOCATION: [facility] 562 : 30 UNIT #: [id number] AGE: [address]: Lety Jay MD SEX: M ORDER DR: MEDICAL IMAGING REPORT Page 1 of 1 COPY
--- NOTE | ~2017-04-18 | US84 ---
[id number] [address] [place], [place] [address] [id number] I MR#: [id number] Acc #: [id number] NAME: WINTER HARRIS : 1930 SEX: M STUDY DATE/TIME: 04/19/2017 9:23 UNIT: C5B ROOM: 562 STUDY DESCRIPTION: US LE Veins Complete Maycol Stdy Attending Physician: Lety Jay M.D. Referring Physician: Willie Neal M.D. Ordering Physician: Joi Gaspar M.D. Primary Care Physician: Willie Neal M.D. MEDICAL IMAGING REPORT This report is preliminary unless electronic signature is present EXAM Bilateral lower extremity venous duplex 04/19/2017 HISTORY Bilateral lower extremity edema and pain in calf ankles and feet for 1 year. Evaluate for deep vein thrombosis. FINDINGS TECHNIQUE Venous ultrasound examination of both lower extremities was performed using grayscale, spectral Doppler and color flow Doppler imaging. FINDINGS The examination is negative. There is no evidence of deep venous thrombus from the groin to the lower calf bilaterally. Visualized greater saphenous veins are also patent. IMPRESSION Negative examination. No evidence of lower extremity deep venous thrombosis. Dictated by... Marcel Nur M.D. THIS IS AN ELECTRONICALLY VERIFIED REPORT Marcel Nur M.D. at 04/20/2017 7:55 AM OLEG/lindsey TD: 04/19/2017 10:38 JOB #: [id number] MEDICAL IMAGING REPORT Page 1 of 1 COPY
[~2017-04-18 13:29] MED LIST changes: -AMIODARONE PO; -AMLODIPINE BESY10 MG PO; -ASPIRIN81 MG PO; -DULERA 200 MCG/13 GM INH; -FINASTERIDE5 M1 PO; -FUROSEMIDE40 MG PO; -HYDRALAZINE HCL25 MG PO; -IMDUR-ER60 M3 PO; -NITROGLYCERIN0.4 MG SL; -NORCO 7.5-3251 EACH PO; -OXYGEN; -PAROXETINE HCL40 M1 PO; -POTASSIUM CHLO10 ME1 PO; -PROAMATINE10 MG PO; -TRAZODONE PO; -VITAMIN D1000 UNIT PO
[2017-04-18] MEDS ORDERED: HYDRALAZINE HCL25 MG PO (16:00)
[2017-04-18] MEDS ORDERED: FUROSEMIDE40 MG PO (16:00)
[2017-04-18] MEDS ORDERED: POTASSIUM CHLO10 ME1 PO (16:01)
[2017-04-18] MEDS ORDERED: AMLODIPINE BESY10 MG PO (16:01)
[2017-04-18] MEDS ORDERED: LIPITOR20 MG PO (16:02)
[2017-04-18] MEDS ORDERED: ASPIRIN81 MG PO (16:02)
[2017-04-18] MEDS ORDERED: NORCO 7.5-3251 EACH PO (16:03)
[2017-04-18] MEDS ORDERED: FINASTERIDE5 M1 PO (16:03)
[2017-04-18] MEDS ORDERED: PAROXETINE HCL40 M1 PO (16:04)
[2017-04-18] MEDS ORDERED: NITROGLYCERIN0.4 MG SL (16:04)
[2017-04-18] MEDS ORDERED: FLOMAX0.4 M1 PO (16:05)
[2017-04-18] MEDS ORDERED: TRAZODONE PO (16:05)
[2017-04-18] MEDS ORDERED: VITAMIN D1000 UNIT PO (16:06)
[2017-04-18 18:57] LABS: BASOPHIL# 0.1 X10e3 (0-0.3); EOSINOPHIL# 0.1 X10e3 (0-0.7); EOSINOPHIL% 1.6 % (0.0-7.0); HEMATOCRIT 41.3 % (38.0-50.0); HEMOGLOBIN 13.6 gm/dL (13.0-16.0); LYMPHOCYTE# 1.1 X10e3 (1.0-3.5); LYMPHOCYTE% 14.8 % (17.0-45.0); MEAN CELL VOLUME 90.7 FL (83-96); MEAN CORPUSCULAR HEMOGLOBIN 29.9 PG (28-34); MEAN CORPUSCULAR HGB CONC 32.9 g/dL (30-36); MONOCYTE# 0.9 X10e3 (0-1.0); MONOCYTE% 11.6 % (3.0-12.0); NEUTROPHIL# 5.4 X10e3 (1.5-7.1); PLATELET COUNT 313 X10e3 (140-420); RED BLOOD COUNT 4.55 X10e (3.90-5.60); RED CELL DISTRIBUTION WIDTH 15.2 % (11.0-15.5); WHITE BLOOD COUNT 7.6 X10e3 (4.0-10.5)
[2017-04-18 18:58] LABS: POC - CKMB 2.1 ng/mL (0.0-7.9); POC - TROPONIN <0.05 ng/mL (<=0.05)
[2017-04-18 19:04] LABS: INR 1.1; PARTIAL THROMBOPLASTIN TIME 27.8 SECONDS (23.5-31.3); PROTHROMBIN TIME (PATIENT) 11.6 SECONDS (10.0-11.7)
[2017-04-18 19:13] LABS: ALBUMIN SERUM 3.1 g/dL (3.5-5.0); BILIRUBIN, DIRECT 0.1 mg/dL (0.0-0.2); BILIRUBIN,INDIRECT 0.7 mg/dL (0.0-0.9); BILIRUBIN,TOTAL 0.8 mg/dL (0.2-2.0); BUN/CREATININE RATIO 14.09; CALCIUM SERUM 8.9 mg/dL (8.4-10.2); CREATININE SERUM 2.2 mg/dL (0.6-1.4); GLOM FILT RATE Estimated 26.2 mL/min (>60); POTASSIUM 4.1 mmol/L (3.5-5.1); PROTEIN TOTAL SERUM 6.2 g/dL (6.0-8.3)
[2017-04-18 19:21] LABS: DIFF IND NO
[2017-04-18 22:15] LABS: POC - CKMB 2.5 ng/mL (0.0-7.9); POC - TROPONIN <0.05 ng/mL (<=0.05)
[2017-04-19 05:34] LABS: BASOPHIL# 0.1 X10e3 (0-0.3); BASOPHIL% 1.2 % (0-2.5); EOSINOPHIL# 0.2 X10e3 (0-0.7); EOSINOPHIL% 3.4 % (0.0-7.0); HEMATOCRIT 35.6 % (38.0-50.0); HEMOGLOBIN 11.7 gm/dL (13.0-16.0); LYMPHOCYTE# 1.1 X10e3 (1.0-3.5); LYMPHOCYTE% 17.7 % (17.0-45.0); MEAN CELL VOLUME 91.1 FL (83-96); MEAN CORPUSCULAR HGB CONC 32.9 g/dL (30-36); MONOCYTE# 0.8 X10e3 (0-1.0); MONOCYTE% 12.9 % (3.0-12.0); NEUTROPHIL% 64.8 % (40-75); PLATELET COUNT 273 X10e3 (140-420); RED BLOOD COUNT 3.91 X10e (3.90-5.60); WHITE BLOOD COUNT 6.1 X10e3 (4.0-10.5)
[2017-04-19 05:40] LABS: DIFF IND YES
[2017-04-19 06:15] LABS: THYROID STIMULATING HORMONE 1.81 uIU/ml (0.34-5.60)
[2017-04-19 06:17] LABS: CALCIUM SERUM 8.1 mg/dL (8.4-10.2); GLOM FILT RATE Estimated 29.4 mL/min (>60)
[2017-04-19 06:21] LABS: FREE THYROXIN (T4) 1.06 ng/dL (0.58-1.64)
[2017-04-19 06:43] LABS: PLATELET ESTIMATE NORMAL (NORMAL)
[2017-04-19 06:46] LABS: URBCS1 AUWI 0-2 /[HPF] (0-2); URINE APPEARANCE CLEAR; URINE BACTERIA AUWI NEG (NEGATIVE); URINE BILIRUBIN NEG (NEG); URINE BLOOD NEG (NEG); URINE COLOR YELLOW; URINE GLUCOSE 100 MG/DL (NEG); URINE KETONE NEG (NEG); URINE LEUKOCYTE ESTERASE NEG (NEG); URINE NITRATE NEG (NEG); URINE PROTEIN 1+ (NEG); URINE SPECIFIC GRAVITY 1.016 (1.003-1.035); URINE SQUAMOUS EPITHELIAL CELL NONE SEEN /[HPF]; UWBCS1 AUWI 0-2 (0-5)
[2017-04-19 21:25] LABS: CREATININE,RANDOM URINE 60 mg/dL; TOTAL PROTEIN,RANDOM URINE 135 mg/dl (<10)
[2017-04-20 06:19] LABS: HEMATOCRIT 36.1 % (38.0-50.0); MEAN CELL VOLUME 90.7 FL (83-96); MEAN CORPUSCULAR HGB CONC 33.1 g/dL (30-36); MEAN PLATELET VOLUME 8.2 FL (6.5-11.5); RED BLOOD COUNT 3.98 X10e (3.90-5.60); RED CELL DISTRIBUTION WIDTH 14.8 % (11.0-15.5); WHITE BLOOD COUNT 7.1 X10e3 (4.0-10.5)
[2017-04-20 07:33] LABS: BUN/CREATININE RATIO 16.11; CALCIUM SERUM 8.5 mg/dL (8.4-10.2); CREATININE SERUM 1.8 mg/dL (0.6-1.4); GLOM FILT RATE Estimated 33.3 mL/min (>60)
[2017-04-20] MEDS ORDERED: DULERA 200 MCG/13 GM INH (17:49)
[2017-04-20] MEDS ORDERED: IMDUR-ER60 M3 PO (17:50)
[2017-04-20] MEDS ORDERED: PROAMATINE10 MG PO (17:50)
[2017-04-20] MEDS ORDERED: AMIODARONE PO (17:51)
[2017-04-20] MEDS ORDERED: OXYGEN (17:57)
== END 2017-04-20 21:20 | disposition home or self-care (01) | DRG 682 ==
LOC: CED 13:29 → CEDOF 20:50 → C5B 21:15 → CEDOF 22:59 → C5B 22:59
PROVIDERS: Emergency Medicine; Internal Medicine; Internal Medicine Nephrology
DX: N17.9 Acute kidney failure, unspecified (principal); J96.21 Acute and chronic respiratory failure with hypoxia; I95.2 Hypotension due to drugs; N18.4 Chronic kidney disease, stage 4 (severe); T46.5X5A Adverse effect of other antihypertensive drugs, initial encounter; I12.9 Hypertensive chronic kidney disease with stage 1 through stage 4 chronic kidney disease, or unspecified chronic kidney disease; Z87.891 Personal history of nicotine dependence; I48.0 Paroxysmal atrial fibrillation; J44.9 Chronic obstructive pulmonary disease, unspecified; N40.0 Benign prostatic hyperplasia without lower urinary tract symptoms; Z85.51 Personal history of malignant neoplasm of bladder; G89.29 Other chronic pain; J84.10 Pulmonary fibrosis, unspecified; Z91.81 History of falling; Z96.652 Presence of left artificial knee joint; Z90.49 Acquired absence of other specified parts of digestive tract; I25.2 Old myocardial infarction; I25.10 Atherosclerotic heart disease of native coronary artery without angina pectoris; Z95.5 Presence of coronary angioplasty implant and graft; Z68.26 Body mass index [BMI] 26.0-26.9, adult
CPT/HCPCS: 36415; 71010; 80048; 80076; 81003; 82550; 82553; 82570; 82607; 83605; 84156; 84439; 84443; 84484; 85025; 85027; 85610; 85730; 87040; 87086; 93005; 93225; 93226; 93970; 94760; 96360; 97110; 97116; 97162; 97530; 99285; G8978-GP; G8979-GP; J1650

== ENCOUNTER 2017-04-22 18:14 | Observation (INO) | payer MEDICARE ==
[~2017-04-22] VITALS: Ht 182.9 cm; Wt 86.5 kg
--- NOTE | ~2017-04-22 | NM69 ---
[facility] A Service of [facility] & [facility] RADIOLOGY TEXT RESULTS PATIENT: WINTER HARRIS LOCATION: [facility] 320-01 : 30 UNIT #: [id number] AGE: [address]: Rob Juan MD SEX: M ORDER DR: [id number] [facility] [address]. [place], [place] [address] [id number] I MR#: [id number] Acc #: [id number] NAME: WINTER HARRIS. : 1930 SEX: M STUDY DATE/TIME: 04/23/2017 10:07 UNIT: [address] ROOM: [facility] STUDY DESCRIPTION: NM Pulm Vent and Perf Attending Physician: Rob Juan M.D. Ordering Physician: Rbo Juan M.D. Primary Care Physician: Willie Neal M.D. MEDICAL IMAGING REPORT This report is preliminary unless electronic signature is present EXAM Ventilation perfusion lung scan, 04/23/2017 HISTORY Chest pain, shortness of breath and elevated D-dimer. Symptoms began yesterday. Bilateral lower extremity edema. COPD. Bladder cancer. Evaluate for pulmonary embolus. FINDINGS The patient received 33.7 mCi of technetium 99m tagged DTPA aerosol for ventilation imaging followed by an intravenous injection of 5.8 mCi of technetium 99m tagged MAA for perfusion imaging. Comparison is made to a chest radiograph dated 04/22/2017 at 19:09. Ventilation images show central trapping of the radiotracer consistent with the patient's history of COPD. There are multiple matching ventilation perfusion defects bilaterally. However no unmatched subsegmental or segmental perfusion defects are seen. Findings are characteristic of low probability for pulmonary embolus. IMPRESSION Findings characteristic of low probability for pulmonary embolus. Dictated by... Marcel Nur M.D. THIS IS AN ELECTRONICALLY VERIFIED REPORT Marcel Nur M.D. at 04/24/2017 10:34 AM OLEG/ruthie TD: 04/23/2017 11:04 JOB #: [id number] MEDICAL IMAGING REPORT [facility] A Service of [facility] & [facility] RADIOLOGY TEXT RESULTS PATIENT: WINTER HARRIS LOCATION: [facility] 320-01 : 30 UNIT #: [id number] AGE: [address]: Rob Juan MD SEX: M ORDER DR: Page 1 of 1 COPY
--- NOTE | ~2017-04-22 | HP ---
Unit #: [id number] #: [id number] Patient: WINTER HARRIS [id number] [address] [place], [place] [address] [id number] MR#: [id number] NAME: WINTER HARRIS. ROOM: 320 Age: 86 Sex: M Admission Date: 04/22/2017 : 1930 Attending Physician: Joi Gaspar M.D. Primary Care Physician: Willie Neal M.D. HISTORY AND PHYSICAL CHIEF COMPLAINT Chest pain. HISTORY This pleasant, 86-year-old male with chronic kidney disease, CAD, PAF is admitted for chest pain. Today, when attempting to ambulated, the patient had chest pain. It is in the left chest to the left shoulder without associated cardiac symptoms. Nitroglycerin was not particularly helpful this morning. The patient then had a second episode later in the day helped by hydrocodone. He was in the bathroom for the third episode trying to get up when he felt another episode of fairly significant left chest pain. When EMS arrived, he was somewhat diaphoretic. He denies cough, worsening shortness of breath, or pleuritic chest pain with the above. No fevers, sweats, or chills. He has chronic leg edema, which is unchanged. Was recently admitted to this facility last week where Dopplers of the lower extremities were negative for DVTs. He is being seen in the ER where his EKG shows no ischemia. First set of cardiac enzymes are negative. He already took his aspirin earlier today. Patient was most recently admitted to this facility 04/18 through 04/20/2017 for medication induced hypotension, worsening weakness, new paroxysmal atrial fibrillation with rapid ventricular response, was seen in consultation by cardiology. At the time of his discharge, his blood pressure medications were discontinued. He was placed on amiodarone and ProAmatine. Due to frequent falls, he was not felt to be a good candidate for anticoagulation. Has been persistently weak since his discharge two days ago. PAST MEDICAL HISTORY 1. Recent admission to [facility] two weeks ago for balance issues, lightheadedness, weakness, dyspnea on exertion. He was diagnosed with accelerated hypertension at that time and echo and stress test were performed, although I do not have these formal results at present. 2. Admission to this facility 04/18 through 04/20/2017 for medication induced hypotension; weakness; paroxysmal atrial fibrillation with RVR, which was a new diagnosis. 3. COPD. 4. Chronic kidney disease. 5. Chronic low back pain, status post epidural steroid injections and back surgery. 6. BPH. Unit #: [id number] #: [id number] Patient: WINTER HARRIS 7. Papillary bladder cancer requiring cystoscopy and fulguration of the bladder tumor along with instillation of mitomycin-C. 8. CAD, status post PCI and stent, mid RCA, 2004. 9. Essential hypertension now with orthostatic hypotension. 10. Possible cyst versus mass, right kidney, being monitored by the patient's urologist. 11. DJD and chronic pain. 12. Back surgery. 13. Left knee replacement. 14. Cholecystectomy. ALLERGIES No known drug allergies. HOME MEDICATIONS 1. Lasix 20 mg daily. 2. Aspirin 81 mg daily. 3. Lipitor 20 mg daily. 4. Proscar 5 mg daily. 5. [place] 7.5/325 t.i.d. p.r.n. 6. P.R.N. nitroglycerin. 7. Paxil 40 mg daily. 8. Flomax 0.4 mg 2 tablets daily. 9. Trazodone 25 mg q.h.s. 10. Vitamin D 1000 units daily. 11. ProAmatine 10 mg t.i.d. 12. Amiodarone 200 mg daily. 13. Dulera 2 puffs b.i.d. FAMILY HISTORY Noncontributory given patient's age. SOCIAL HISTORY The patient lives alone, but his daughter from the [facility] is staying with him at present. Does not drink alcohol. Stopped smoking 30 years ago. REVIEW OF SYSTEMS Notable for weakness, chest pain, COPD, chronic kidney disease, chronic back pain, DJD, bladder cancer, CAD, BPH, hypertension, orthostatic hypotension, paroxysmal atrial fibrillation, and abovementioned surgeries. All other systems were reviewed and otherwise negative. PHYSICAL EXAMINATION GENERAL APPEARANCE: Pleasant, 86-year-old male currently in no acute distress. VITAL SIGNS: Temperature 98, pulse 98, respirations 17, blood pressure 169/72, O2 saturation 94% on room air. HEENT EXAMINATION: Eyes: PERRLA. Extraocular muscles are intact. Pharynx is benign. NECK: Supple without adenopathy or thyromegaly. CHEST: Clear. No reproducible chest wall tenderness on exam. CARDIAC: Normal S1 and S2 without definite murmur. ABDOMEN: Bowels sounds are present. No hepatosplenomegaly, tenderness, or masses. EXTREMITIES: With mild bilateral edema. No ulcers noted over the heels. Pedal pulses are diminished. NEUROLOGIC EXAM: Patient is awake, alert. He is oriented. His cranial Unit #: [id number] #: [id number] Patient: WINTER HARRIS nerves are intact, although he is a bit hard of hearing. Has equal strength throughout, but is generally weak on exam and needs help just to sit up. DIAGNOSTIC STUDIES LABORATORY: Admission labs: Hematocrit 38.8, normal white count, MCV, and platelet count. Normal coags. SMA-7: BUN 29, creatinine 1.9, stable. Cardiac markers are negative. IMAGING: Chest x-ray shows increased opacities of the bases, which could represent atelectasis versus pneumonia. CARDIOVASCULAR: EKG: Sinus rhythm, rate 98. Left axis deviation. ASSESSMENT 1. Left-sided chest pain x3 episodes today. The pain was not pleuritic. Patient does not have a cough. Could represent coronary artery disease. Could possibly be related to musculoskeletal pain, although patient does not have reproducible pain on exam. 2. Chronic pedal edema with negative Dopplers of the legs for deep venous thrombosis recently. 3. Chronic obstructive pulmonary disease. 4. Chronic kidney disease. 5. Paroxysmal atrial fibrillation in normal sinus rhythm on amiodarone. 6. Bladder cancer. 7. History of hypertension, now being treated for orthostatic hypotension. 8. Depression. 9. Increasing deconditioning. 10. Degenerative joint disease and chronic pain. PLANS 1. Nitro paste, aspirin, serial cardiac enzymes, consult cardiology. 2. Social work to see. 3. DVT prophylaxis. Dictated by Kentrell Lazo/alec TD: 04/23/2017 06:14 JOB #: [id number] HISTORY AND PHYSICAL Page 1 of 1 X Joi Gaspar MD X HISTORY AND PHYSICAL
--- NOTE | ~2017-04-22 | CO ---
Unit #: [id number] #: [id number] Patient: LATRELL HARRIS [id number] [facility] [address] [facility]. [place], [place] [address] [id number] I MR#: [id number] NAME: LATRELL HARRIS ROOM: 320 Age: 86 Sex: M Admission Date: 04/22/2017 : 1930 Attending Physician: Rob Juan M.D. Primary Care Physician: Willie Neal M.D. Consultation Date: 04/24/2017 CONSULTATION REPORT REASON FOR CONSULTATION Depression, confusion. HISTORY OF PRESENT ILLNESS Mr. Latrell Harris is an 86-year-old white male, seen in room 320, bed 1 on 04/24/2017 at [facility]. The patient dressed casually, lying comfortably in bed. The patient's daughter was at the bedside. The patient was admitted with chest discomfort. The patient reported that recently his son diagnosed with cancer stage IV and lost his last year. The patient had recent loss, feeling sad and depressed. The patient also had some problem with confusion lately and problem with memory. The patient denied any thoughts of harming self or others or any psychotic symptom. Vital signs; temperature 97.6, pulse 68, respirations 18, blood pressure 144/80, and oxygen saturation 98%. The patient also having trouble sleeping, decreased appetite. PAST PSYCHIATRIC HISTORY History of depression and anxiety. The patient is on Paxil 40 mg daily and trazodone 25 mg at bedtime. MEDICAL HISTORY History of COPD, chronic kidney disease, chronic low back pain, back surgery, BPH, papillary bladder cancer, CAD, essential hypertension, possible cyst versus mass, DJD, chronic pain, back surgery, left knee replacement, cholecystectomy. ALLERGIES No known drug allergies. MEDICATIONS The patient is on Lasix, aspirin, Lipitor, Proscar, [place], Paxil 40 mg daily, Flomax 0.4 mg daily, trazodone 25 mg at bedtime, vitamin D ProAmatine, amiodarone, Dulera. FAMILY HISTORY AND SOCIAL HISTORY The patient has a good support system from his daughter and son, but lives alone. No history of abuse. No history of any substance abuse. REVIEW OF SYSTEMS Complete review of system is unremarkable except as mentioned above. MENTAL STATUS EXAMINATION The patient's vital signs; temperature 97.6, pulse 68, respirations 18, blood pressure 144/80, and oxygen saturation 98%. General appearance, the Unit #: [id number] #: [id number] Patient: LATRELL HARRIS patient dressed casually, lying comfortably in bed. Attention span and concentration, fair. Speech, regular rate. Oriented in time, place, and person. Mood and affect, sad and depressed. Thought process, coherent. Thought content, the patient denied any thoughts of harming self or others, but sad, depressed, anxious. Recent and remote memory, fair to slightly impaired. Language, fair. Fund of knowledge, fair to slightly impaired. Insight and judgment, fair to slightly impaired. 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 Secondary diagnosis: Deferred. Medical diagnosis: Please refer to H and P. Stressors: Psychosocial stressors. ASSESSMENT/PLAN 1. Supportive psychotherapy and psychoeducation provided to the patient. 2. Educated about benefits and side effects of medication and course and prognosis of illness. 3. Recommending at this time to lower the dosage of Paxil to 20 mg daily and add Remeron 7.5 mg at bedtime due to anticholinergic side effect from Paxil. If needed, consider further adjustment of medication and also recommending that based on the patient's current condition recommending the patient should be living in a supervised assisted living facility. associate property manager will work on that. Please feel free to call if any question, telephone #[phone]. Dictated by... Kentrell Pimentel/jericho TD: 04/24/2017 17:07 JOB #: [id number] CONSULTATION REPORT Page 1 of 1 X Jimbo Palmer MD CONSULTATION REPORT
--- NOTE | ~2017-04-22 | EKG ---
PATIENT: WINTER HARRIS UNIT #: [id number] Ventricular Rate: 69 BPM Atrial Rate: 69 BPM P-R Interval: 224 ms QRS Duration: 102 ms Q-T Interval: 418 ms QTC Calculation(Bezet): 447 ms P [place]: 51 degrees Calculated R [place]: -16 degrees Calculated T [place]: 38 degrees Diagnosis Line: Sinus rhythm with 1st degree A-V block Diagnosis Line: Otherwise normal ECG Diagnosis Line: When compared with ECG of 23-APR-2017 08:53, Diagnosis Line: (unconfirmed) Diagnosis Line: No significant change was found Diagnosis Line: Confirmed by JERONIMO CARVER MD ([id number]) on 04/25/2017 Diagnosis Line: 4:52:38 PM INTERPRETING MD: WEN AGRCIA
--- NOTE | ~2017-04-22 | CR72 ---
[facility] A Service of [facility] RADIOLOGY TEXT RESULTS PATIENT: WINTER HARRIS LOCATION: [facility] 320-01 : 30 UNIT #: [id number] AGE: [address]: Rob Juan MD SEX: M ORDER DR: [id number] [facility] [address] [facility] [place] [facility]. [place], [place] [address] [id number] I MR#: [id number] Acc #: [id number] NAME: WINTER HARRIS. : 1930 SEX: M STUDY DATE/TIME: 04/22/2017 19:09 UNIT: CEDOF ROOM: 51394 STUDY DESCRIPTION: CR Chest Single View Portable Attending Physician: Joi Gaspar M.D. Ordering Physician: Ed James Adams M.D. Primary Care Physician: Willie Neal M.D. MEDICAL IMAGING REPORT This report is preliminary unless electronic signature is present EXAM Portable AP view of the chest. COMPARISON April 18, 2017; March 30, 2017; and January 29, 2017. INDICATION 86-year-old male with dyspnea and left-sided chest pain today. History of hypertension. FINDINGS There are minimally increased opacities in both lung bases which may reflect atelectasis. Developing pneumonia cannot be excluded. Trace left pleural effusion cannot be excluded. No evidence of pneumothorax. There is stable cardiomediastinal silhouette. Heart size appears mildly enlarged, perhaps a product of portable technique. Advanced osteoarthritis of both glenohumeral joints, right greater than left where there appears to be [id number]-[id number] touching of the right glenohumeral joint. Degenerative changes bilaterally in the lower cervical spine. Chronic deformity of the left distal clavicle. IMPRESSION Slightly increased bibasilar opacities representing atelectasis or possibly developing pneumonia. Small trace developing left pleural effusion cannot be excluded. Dictated by... Chris Ford M.D. THIS IS AN ELECTRONICALLY VERIFIED REPORT Chris Ford M.D. at 04/29/2017 9:28 AM [facility] A Service of [facility] RADIOLOGY TEXT RESULTS PATIENT: WINTER HARRIS LOCATION: [facility] 320-01 : 30 UNIT #: [id number] AGE: [address]: Rob Juan MD SEX: M ORDER DR: Aline TD: 04/22/2017 23:31 JOB #: [id number] MEDICAL IMAGING REPORT Page 1 of 1 COPY
--- NOTE | ~2017-04-22 | EKG ---
PATIENT: WINTER HARRIS UNIT #: [id number] Ventricular Rate: 97 BPM Atrial Rate: 97 BPM P-R Interval: 210 ms QRS Duration: 86 ms Q-T Interval: 374 ms QTC Calculation(Bezet): 474 ms P [place]: 37 degrees Calculated R [place]: -36 degrees Calculated T [place]: 33 degrees Diagnosis Line: Sinus rhythm with 1st degree A-V block Diagnosis Line: Left axis deviation Diagnosis Line: Abnormal ECG Diagnosis Line: When compared with ECG of 22-APR-2017 18:23, Diagnosis Line: No significant change was found Diagnosis Line: Confirmed by JERONIMO CARVER MD ([id number]) on 04/25/2017 Diagnosis Line: 4:48:01 PM INTERPRETING MD: WEN GARCIA
--- NOTE | ~2017-04-22 | DS ---
Unit #: [id number] #: [id number] Patient: WINTER HARRIS [id number] [address] [address] [id number] MR#: [id number] NAME: WINTER HARRIS. ROOM: 320 Age: 86 Sex: M Admission Date: 04/22/2017 : 1930 Discharge Date: Attending Physician: Rob Juan M.D. Primary Care Physician: Willie Neal M.D. DISCHARGE SUMMARY PRIMARY DIAGNOSES 1. Acute chest pain/angina pectoris. 2. Nonsustained ventricular tachycardia. 3. Orthostatic hypotension. 4. Coronary artery disease with history of right coronary stent. 5. Chronic obstructive pulmonary disease. 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 7. Benign prostatic hypertrophy. 8. History of kidney lesion followed by Urology. 9. Depression uncontrolled per family. 10. Generalized weakness. HOSPITAL COURSE Patient was placed in the hospital for chest pain. Saw Dr. Rai with Cardiology. Patient has had a recent negative stress test, and ultimately the patient's physicians and family and patient himself decided against coronary catheterization due to the increased risk with his advanced chronic kidney disease. We will continue to treat him medically. He was restarted on his Imdur which had been stopped earlier this week in attempts to treat his orthostatic hypotension. He was seen by Psychiatry and started on Remeron, and for his ongoing issues with orthostatic hypotension, we will be taking him off of his finasteride at this time and keeping him on Flomax once a day. He is advised due to these changes that he needs to follow up with his urologist, Dr. Wang, in two to six weeks. As he does not appear to be tolerating his prostate medications very well, consideration could be made for transurethral resection of the prostate as an alternative therapy if appropriately indicated. Patient qualified by Physical Therapy evaluation for subacute rehab, and he is being discharged to subacute rehab. DISCHARGE DISPOSITION To subacute rehab. DISCHARGE STATUS Stable. DISCHARGE ACTIVITY With assistance only. DISCHARGE DIET A 2000 mg sodium, heart-healthy diet. Unit #: [id number] #: [id number] Patient: KIMBERLY,WINTER J DISCHARGE FOLLOWUP 1. With Dr. Wang with Urology in two to six weeks. 2. With his PCP in two to six weeks. 3. With Dr. Rai on June 22 at 10:45 a.m. DISCHARGE MEDICATIONS 1. Midodrine 10 mg p.o. t.i.d. 2. Flomax 0.4 mg p.o. at bedtime. 3. Amiodarone 200 mg p.o. once daily. 4. Tylenol 325 mg p.o. q.4 hours p.r.n. pain. 5. Paxil 40 mg p.o. daily. 6. Trazodone 25 mg p.o. at bedtime. 7. Remeron 7.5 mg p.o. at bedtime. 8. Atorvastatin 80 mg p.o. daily. 9. Dulera 200/5 mcg 2 puffs inhaled b.i.d. 10. Metoprolol tartrate 25 mg p.o. b.i.d. 11. Oxygen continue with home dose which was 2 liters continuously. 12. Lasix 20 mg p.o. q.a.m. 13. Aspirin 81 mg p.o. daily. 14. Lortab 7.5 mg p.o. q.8 hours p.r.n. pain. 15. Plavix 75 mg p.o. daily. 16. Nitroglycerin tablet 0.4 mg sublingual p.r.n. chest pain. 17. Vitamin D 1000 units p.o. daily. 18. Imdur 30 mg p.o. daily. 1. Dictated by... Rob Juan M.D. LAVON/joaquin TD: 04/24/2017 16:28 JOB #: [id number] DISCHARGE SUMMARY Page 1 of 1 X Rob Juan MD X DISCHARGE SUMMARY
--- NOTE | ~2017-04-22 | EKG ---
PATIENT: WINTER HARRIS UNIT #: [id number] Ventricular Rate: 98 BPM Atrial Rate: 98 BPM P-R Interval: 204 ms QRS Duration: 82 ms Q-T Interval: 360 ms QTC Calculation(Bezet): 459 ms P [place]: 47 degrees Calculated R [place]: -22 degrees Calculated T [place]: 63 degrees Diagnosis Line: Normal sinus rhythm Diagnosis Line: Normal ECG Diagnosis Line: When compared with ECG of 28-MAY-2013 13:16, Diagnosis Line: (unconfirmed) Diagnosis Line: Questionable change in QRS axis Diagnosis Line: QT has lengthened Diagnosis Line: Confirmed by KERMIT TOMLINSON MD ([id number]) on 04/23/2017 Diagnosis Line: 2:03:52 PM INTERPRETING MD: DAVI GARCIA
[~2017-04-22 18:14] MED LIST changes: +AMIODARONE PO; +AMLODIPINE BESY10 MG PO; +ASPIRIN81 MG PO; +DULERA 200 MCG/13 GM INH; +FINASTERIDE5 M1 PO; +FUROSEMIDE40 MG PO; +HYDRALAZINE HCL25 MG PO; +IMDUR-ER60 M3 PO; +NITROGLYCERIN0.4 MG SL; +NORCO 7.5-3251 EACH PO; +OXYGEN; +PAROXETINE HCL40 M1 PO; +POTASSIUM CHLO10 ME1 PO; +PROAMATINE10 MG PO; +TRAZODONE PO; +VITAMIN D1000 UNIT PO
[2017-04-22 19:47] LABS: BASOPHIL# 0.1 X10e3 (0-0.3); BASOPHIL% 1.2 % (0-2.5); EOSINOPHIL# 0.1 X10e3 (0-0.7); EOSINOPHIL% 1.3 % (0.0-7.0); HEMATOCRIT 38.8 % (38.0-50.0); LYMPHOCYTE# 0.9 X10e3 (1.0-3.5); LYMPHOCYTE% 9.6 % (17.0-45.0); MEAN CELL VOLUME 91.2 FL (83-96); MEAN CORPUSCULAR HEMOGLOBIN 30.4 PG (28-34); MEAN CORPUSCULAR HGB CONC 33.4 g/dL (30-36); MONOCYTE# 1.1 X10e3 (0-1.0); MONOCYTE% 12.3 % (3.0-12.0); NEUTROPHIL# 6.7 X10e3 (1.5-7.1); NEUTROPHIL% 75.6 % (40-75); PLATELET COUNT 316 X10e3 (140-420); RED BLOOD COUNT 4.26 X10e (3.90-5.60); WHITE BLOOD COUNT 8.9 X10e3 (4.0-10.5)
[2017-04-22 19:49] LABS: DIFF IND YES
[2017-04-22 19:51] LABS: POC - CKMB 1.3 ng/mL (0.0-7.9); POC - TROPONIN <0.05 ng/mL (<=0.05)
[2017-04-22 19:59] LABS: INR 1.1; PARTIAL THROMBOPLASTIN TIME 28.2 SECONDS (23.5-31.3)
[2017-04-22 20:03] LABS: PLATELET ESTIMATE NORMAL (NORMAL)
[2017-04-22 20:07] LABS: BUN/CREATININE RATIO 15.26; CALCIUM SERUM 8.9 mg/dL (8.4-10.2); CREATININE SERUM 1.9 mg/dL (0.6-1.4); GLOM FILT RATE Estimated 31.2 mL/min (>60); POTASSIUM 4.6 mmol/L (3.5-5.1)
[2017-04-22 23:51] LABS: POC - CKMB 1.4 ng/mL (0.0-7.9); POC - TROPONIN <0.05 ng/mL (<=0.05)
[2017-04-23 06:41] LABS: HEMATOCRIT 36.4 % (38.0-50.0); HEMOGLOBIN 11.9 gm/dL (13.0-16.0); MEAN CELL VOLUME 90.9 FL (83-96); MEAN CORPUSCULAR HEMOGLOBIN 29.8 PG (28-34); MEAN CORPUSCULAR HGB CONC 32.8 g/dL (30-36); MEAN PLATELET VOLUME 8.4 FL (6.5-11.5); RED CELL DISTRIBUTION WIDTH 14.9 % (11.0-15.5); WHITE BLOOD COUNT 6.7 X10e3 (4.0-10.5)
[2017-04-23 07:13] LABS: BUN/CREATININE RATIO 13.88; CALCIUM SERUM 8.6 mg/dL (8.4-10.2); CREATININE SERUM 1.8 mg/dL (0.6-1.4); GLOM FILT RATE Estimated 33.3 mL/min (>60); POTASSIUM 4.3 mmol/L (3.5-5.1)
[2017-04-23 07:54] LABS: %MB 1.7 % (0.0-4.0); MB 2.1 ng/ml
[2017-04-23 13:02] LABS: %MB 1.8 % (0.0-4.0); MB 1.7 ng/ml
[2017-04-24 07:14] LABS: HEMOGLOBIN 11.9 gm/dL (13.0-16.0); MEAN CELL VOLUME 90.3 FL (83-96); MEAN CORPUSCULAR HEMOGLOBIN 30.7 PG (28-34); MEAN PLATELET VOLUME 8.4 FL (6.5-11.5); RED BLOOD COUNT 3.87 X10e (3.90-5.60); RED CELL DISTRIBUTION WIDTH 14.9 % (11.0-15.5); WHITE BLOOD COUNT 7.7 X10e3 (4.0-10.5)
[2017-04-24 07:30] LABS: BUN/CREATININE RATIO 14.73; CALCIUM SERUM 8.9 mg/dL (8.4-10.2); CREATININE SERUM 1.9 mg/dL (0.6-1.4); GLOM FILT RATE Estimated 31.2 mL/min (>60); POTASSIUM 4.4 mmol/L (3.5-5.1)
== END 2017-04-24 18:04 ==
LOC: CED 18:14 → CEDOF 22:10 → C3A PCU 22:10 → CED 22:11 → CEDOF 22:11 → C3A PCU 23:40 → CEDOF 23:40 → C3A PCU 04-23 07:05
PROVIDERS: Emergency Medicine; Internal Medicine; Internal Medicine Cardiovascular Disease
DX: I25.119 Atherosclerotic heart disease of native coronary artery with unspecified angina pectoris (principal); I47.2 Ventricular tachycardia; J44.9 Chronic obstructive pulmonary disease, unspecified; I95.1 Orthostatic hypotension; N18.3 Chronic kidney disease, stage 3 (moderate); N40.0 Benign prostatic hyperplasia without lower urinary tract symptoms; R53.1 Weakness; G89.29 Other chronic pain; M54.5 Low back pain; M19.90 Unspecified osteoarthritis, unspecified site; I48.0 Paroxysmal atrial fibrillation; F32.9 Major depressive disorder, single episode, unspecified; Z85.51 Personal history of malignant neoplasm of bladder; Z87.891 Personal history of nicotine dependence; Z79.82 Long term (current) use of aspirin; Z79.02 Long term (current) use of antithrombotics/antiplatelets; Z99.81 Dependence on supplemental oxygen; Z79.899 Other long term (current) drug therapy; Z95.5 Presence of coronary angioplasty implant and graft; Z96.652 Presence of left artificial knee joint; Z90.49 Acquired absence of other specified parts of digestive tract
CPT/HCPCS: 36415; 71010; 78582; 80048; 82550; 82553; 83735; 84484; 85025; 85027; 85379; 85610; 85730; 87040; 93005; 94640; 94664; 94760; 97116; 97162; 97166; 97530; 99285; A9540; A9567; G0378; G8978-GP; G8979-GP; G8987-GO; G8988-GO; J1650